=== PATIENT | female | born 1950 | race Caucasian/White ===

== ENCOUNTER 2021-10-04 12:46 | Outpatient (CLI) | payer MEDICARE | END 2021-10-04 12:47 | disposition home or self-care (01) | LOC: MRI 12:46 | PROVIDERS: ATTEND Otolaryngology Plastic Surgery within the Head & Neck | DX: H90.42 Sensorineural hearing loss, unilateral, left ear, with unrestricted hearing on the contralateral side (principal) | CPT/HCPCS: 70553; 82565 ==